=== PATIENT | male | born 1980 | race Two or more races ===

== ENCOUNTER 2017-10-21 13:44 | Emergency (ER) | payer SELFPAY ==
[2017-10-21 13:49] VITALS: BP 135/72; PULSE 100; TEMP 98.4; BMI 27.6
[2017-10-21] MEDS ORDERED: HIV POST EXPOSURE PROPHYLAXIS KIT NR ONE (14:30)
--- NOTE | 2017-10-21 14:40 | PDOC ---
History of Present Illness - General Chief Complaint: Injury Stated Complaint: STUCK BY NAIL Time Seen by Provider: 10/21/17 14:02 - History of Present Illness Initial Comments: 37-year-old male presents for evaluation of needle stick injury. By a unidentified needle from an unknown source. The injury occurred to the left thenar eminence he has no associated pain or symptoms 10/21/17 14:33 Past History - Past Medical History Allergies/Adverse Reactions: Allergies Allergy/AdvReac Type Severity Reaction Status Date / Time No Known Allergies Allergy Verified 10/21/17 13:45 Home Medications: Ambulatory Orders NK [No Known Home Medication] 10/21/17 COPD: No - Suicide/Smoking/Psychosocial Hx Smoking History: Current every day smoker Number of Cigarettes Smoked Daily: 8 Information on smoking cessation initiated: Yes 'Breaking Loose' booklet given: 10/21/17 Hx Alcohol Use: Yes (OCCASIONALLY) Drug/Substance Use Hx: No Substance Use Type: None Review of Systems - Review of Systems All Other Systems: Reviewed and Negative *Physical Exam - Vital Signs Last Vital Signs Temp Pulse Resp BP Pulse Ox 98.4 F 100 H 18 135/72 100 10/21/17 13:45 10/21/17 13:45 10/21/17 13:45 10/21/17 13:45 10/21/17 13:45 - Physical Exam Comments: Left hand is normal skin color and temperature for range of motion nonpainful nontender no sensorimotor deficits puncture site cannot be visualized 10/21/17 14:35 ED Treatment Course - LABORATORY CBC & Chemistry Diagram: 10/21/17 14:30 10/21/17 14:30 *DC/Admit/Observation/Transfer Diagnosis at time of Disposition: Needle exposure - Referrals Referrals: Eugenio Lorenzana MD [Staff Physician] - Leoncio Hassan MD [Staff Physician] - Ifrah Humphries MD [Staff Physician] - Tai Patterson MD [Staff Physician] - Dinesh Amezquita NP [Nurse Practitioner] - Robert Knight MD [Non Staff, Medical] - Nawaf Rhoades MD [Non Staff, Medical] - Luis Felipe Rosa MD [Non Staff, Medical] - Kathy Madrid MD [Staff Physician] - Rehana Lara MD [Non Staff, Medical] - Apolinar Rosas MD [Non Staff, Medical] - Harvinder Salas [Non Staff, Medical] - Kvng Pérez MD [Non Staff, Medical] - Nataliya Manning DO [Staff Physician] - Evon Bui MD [Non Staff, Medical] - Jaden Temple MD [Non Staff, Medical] - Jaden Farley [Non Staff, Medical] - - Patient Instructions Printed Discharge Instructions: How to Handle Body Fluid Exposure -- Non- Healthcare Worker (At Home, [place], DI for Accidental Exposure to Body Fluids Additional Instructions: Is extremely important to follow up with her primary care provider as well as the infectious disease doctor that I provided for you so you can finish the remainder of your prophylactic therapy - Post Discharge Activity
[2017-10-21] MEDS ORDERED: DIPHTH,PERTUSS(ACELL),TET 0.5 ML DISP.SYRIN IM ONE (14:58)
[2017-10-21 15:13] LABS: BASO % 0.4 % (0-2.0); EOS % 1.2 % (0-4.5); HEMATOCRIT 44.7 % (35.4-49); HEMOGLOBIN 15.8 GM/dL (11.7-16.9); LYMPH % 25.5 % (8-40); MCH 31.6 pg (25.7-33.7); MCHC 35.3 g/dl (32.0-35.9); MEAN CELL VOLUME 89.3 fl (80-96); MEAN PLT VOLUME 7.9 fl (7.5-11.1); MONO % 8.9 % (3.8-10.2); PLATELET COUNT 326 K/MM3 (134-434); WHITE BLOOD COUNT 6.4 K/mm3 (4.0-10.0)
[2017-10-21 15:57] LABS: ALBUMIN 4.3 g/dl (3.4-5.0); ANION GAP 5 (8-16); BLOOD UREA NITROGEN 12 mg/dL (7-18); CALCIUM 8.9 mg/dL (8.5-10.1); CHLORIDE 108 mmol/L (98-107); CHOLESTEROL 190 mg/dL (50-200); CO2 25 mmol/L (21-32); GAMMA GLUTAMYL TRANSPEPTIDASE 53 U/L (5-85); GLUCOSE,RANDOM 80 mg/dL (74-106); LDH 159 U/L (87-241); PHOSPHOROUS 3.1 mg/dL (2.5-4.9); POTASSIUM 4.2 mmol/L (3.5-5.1); SGOT/AST 21 U/L (15-37); SGPT/ALT 23 U/L (12-78); SODIUM 138 mmol/L (136-145); TOT PROT 7.9 g/dl (6.4-8.2); URIC ACID 6.8 mg/dL (2.6-7.2)
[2017-10-21 15:58] LABS: ALK PHOS 127 U/L (45-117); BILIRUBIN,TOTAL 0.4 mg/dL (0.2-1.0); TRIGLYCERIDES 352 mg/dL (35-160)
[2017-10-21] MEDS ORDERED: HIV POST EXPOSURE PROPHYLAXIS KIT PO ONE (17:36)
[2017-10-23 08:07] LABS: HBsAG SCREEN Negative (Negative); HEPATITIS B CORE ANTIBODY Negative (Negative)
== END 2017-10-21 17:44 | disposition home or self-care (01) ==
LOC: JERFT 13:44
PROC: 3E0234Z Introduction of Serum, Toxoid and Vaccine into Muscle, Percutaneous Approach (ICD-10-PCS; principal; 2017-10-21)
DX: S61.432A Puncture wound without foreign body of left hand, initial encounter (principal); W45.0XXA Nail entering through skin, initial encounter; Y93.H3 Activity, building and construction; Y92.69 Other specified industrial and construction area as the place of occurrence of the external cause; Y99.0 Civilian activity done for income or pay
CPT/HCPCS: 36415; 80053; 82465; 82977; 83615; 84100; 84478; 84550; 85025; 86704; 87340; 87389; 90715; 99281-25